=== PATIENT | female | born 1985 ===

== ENCOUNTER 2018-08-16 18:50 | Outpatient (CLI) | payer SELFPAY ==
[~2018-08-16] VITALS: Ht 172.7 cm; Wt 89.1 kg
[2018-08-16 19:32] VITALS: BP 103/57
[2018-08-16 20:35] LABS: MICROSCOPIC AUTO
[2018-08-16 20:42] LABS: AMPHETAMINE SCREEN, URINE Negative (Negative); BARBITURATE SCREEN, URINE Negative (Negative); BENZODIAZEPINE SCREEN, URINE Negative (Negative); CANNABINOID SCREEN, URINE Negative (Negative); COCAINE SCREEN, URINE Negative (Negative); METHADONE SCREEN, URINE Negative (Negative); OPIATE SCREEN, URINE Negative (Negative)
[2018-08-16] MEDS ORDERED: PREN1TAB60 PO (20:51)
[2018-08-16] MEDS ORDERED: ACET325T14 PO (20:52)
[2018-08-16] MEDS ORDERED: ACETAMINOPHEN 325 MG TABLET ONE (20:55)
[2018-08-16] MEDS ORDERED: ACETAMINOPHEN 325 MG TABLET PO PRN (21:30)
== END 2018-08-16 21:20 | disposition home or self-care (01) ==
LOC: LDOP 18:50
PROVIDERS: ATTEND Obstetrics & Gynecology
DX: O26.892 Other specified pregnancy related conditions, second trimester (principal); R11.0 Nausea; Z3A.22 22 weeks gestation of pregnancy
CPT/HCPCS: 59025; 80307; 81001; 87086; 99201; G0463